=== PATIENT | female | born 1965 | race African-American/Black ===

== ENCOUNTER 2016-10-16 16:56 | Emergency (ER) | payer MEDICARE ==
[2016-10-16] MEDS ORDERED: Ketorolac Tromethamine 30 MG/ML VIAL ONE (18:32)
== END 2016-10-16 18:46 | disposition home or self-care (01) ==
LOC: MADERS 16:56
DX: M19.011 Primary osteoarthritis, right shoulder (principal); T78.40XA Allergy, unspecified, initial encounter; E78.5 Hyperlipidemia, unspecified; E78.00 Pure hypercholesterolemia, unspecified; I10 Essential (primary) hypertension; F17.210 Nicotine dependence, cigarettes, uncomplicated; Z79.899 Other long term (current) drug therapy
CPT/HCPCS: 96372; J1885

== ENCOUNTER 2016-11-18 18:52 | Emergency (ER) | payer MEDICARE ==
[2016-11-18] MEDS ORDERED: Dexamethasone 10 MG/ML VIAL ONE (19:25)
[2016-11-18] MEDS ORDERED: methylPREDNISolone Acetate 40 mg/ml Vial ONE (19:25)
== END 2016-11-18 19:46 | disposition home or self-care (01) ==
LOC: MADERS 18:52
DX: M17.12 Unilateral primary osteoarthritis, left knee (principal); M19.011 Primary osteoarthritis, right shoulder; G89.29 Other chronic pain; E78.5 Hyperlipidemia, unspecified; E78.00 Pure hypercholesterolemia, unspecified; I10 Essential (primary) hypertension; F17.210 Nicotine dependence, cigarettes, uncomplicated
CPT/HCPCS: 96372; J1030; J1040; J1100

== ENCOUNTER 2016-12-18 11:17 | Emergency (ER) | payer MEDICARE | END 2016-12-18 11:44 | disposition home or self-care (01) | LOC: MADERS 11:17 | DX: M17.0 Bilateral primary osteoarthritis of knee (principal); E78.5 Hyperlipidemia, unspecified; E78.00 Pure hypercholesterolemia, unspecified; I10 Essential (primary) hypertension; F17.210 Nicotine dependence, cigarettes, uncomplicated | CPT/HCPCS: 99283 ==

== ENCOUNTER 2017-02-01 14:20 | Emergency (ER) | payer MEDICARE ==
[~2017-02-01 14:20] MED LIST: Fluorescein Opthalmic Strip ONE
== END 2017-02-01 15:38 | disposition home or self-care (01) ==
LOC: MADERS 14:20
DX: Z57.5 Occupational exposure to toxic agents in other industries (principal); E11.9 Type 2 diabetes mellitus without complications; E78.5 Hyperlipidemia, unspecified; I10 Essential (primary) hypertension; F17.210 Nicotine dependence, cigarettes, uncomplicated; Z79.51 Long term (current) use of inhaled steroids; X58.XXXA Exposure to other specified factors, initial encounter
CPT/HCPCS: 99283

== ENCOUNTER 2017-03-28 10:41 | Emergency (ER) | payer MEDICARE ==
[2017-03-28 11:29] LABS: Bilirubin Negative (Negative); Blood, Urine Trace (Negative); Clarity Hazy (Clear); Glucose, Urine (Dipstick) Negative (Negative); Leukocyte Small (Negative); Nitrite Negative (Negative); Protein, Urine (Dipstick) Negative (Neg-Trace); RBC/HPF 0-3 HPF (0-3); Squamous Epithelial 0-3 HPF (0-3); Urobilinogen 0.2 mg/dL (0.2-1.0); pH, Urine 5.5 (5.0-9.0)
[2017-03-28 11:30] LABS: Bacteria/HPF 1+ HPF (None Seen)
== END 2017-03-28 11:50 | disposition home or self-care (01) ==
LOC: MADERS 10:41
DX: M15.9 Polyosteoarthritis, unspecified (principal); N39.0 Urinary tract infection, site not specified; E78.5 Hyperlipidemia, unspecified; I10 Essential (primary) hypertension; F17.210 Nicotine dependence, cigarettes, uncomplicated
CPT/HCPCS: 81003; 81015; 87086; 99283

== ENCOUNTER 2017-06-07 15:33 | Emergency (ER) | payer MEDICARE ==
[2017-06-07 17:36] LABS: #Basophils 0.1 thou/uL (0.0-0.2); #Eosinphils 0.1 thou/uL (0.0-0.7); #Lymphocytes 1.7 thou/uL (1.20-3.40); #Monocytes 0.5 thou/uL (0.11-0.59); #Neutrophils 2.1 thou/uL (1.40-6.50); %Basophils 1.2 % (0.0-1.0); %Eosinophils 1.2 % (0.0-10.0); %Lymphocytes 39.1 % (21.0-51.0); %Neutrophils 47.5 % (42.0-75.0); Hemoglobin 14.5 g/dL (12.0-16.0); Mean Corpuscular HGB CONC 32.6 g/dL (32.0-36.0); Mean Corpuscular Hemoglobin 31.9 pg (27.0-31.0); Mean Corpuscular Volume 97.9 fl (81.0-99.0); Platelet Count 295 thou/uL (130-400); Red Blood Cell (RBC) Count 4.55 mill/uL (4.20-5.40); White Blood Cell (WBC) Count 4.3 thou/uL (4.8-10.8)
[2017-06-07 17:42] LABS: PTT 27.7 SEC (22.9-36.1)
[2017-06-07] MEDS ORDERED: HYDROcodone/Acetaminophen 10/325 mg Tablet ONE (17:42)
[2017-06-07 17:43] LABS: D-Dimer Test Less than 0.27 *mcg/mL (0.27-0.43)
[2017-06-07 17:47] LABS: Anion Gap 17 mmol/L (10-20); BUN (Urea Nitrogen) 9 mg/dL (9.8-20.1); Calc. Creatinine Clearance 0 mL/min (70-130); Calcium 9.5 mg/dL (7.8-10.44); Carbon Dioxide 23 mmol/L (22-29); Chloride 106 mmol/L (98-107); Estimated GFR-MDRD Greater than 90; Glucose 90 mg/dL (70-105); Potassium 3.9 mmol/L (3.5-5.1); Sodium 142 mmol/L (136-145)
== END 2017-06-07 18:05 | disposition home or self-care (01) ==
LOC: MADERS 15:33
DX: M17.12 Unilateral primary osteoarthritis, left knee (principal); E78.5 Hyperlipidemia, unspecified; I10 Essential (primary) hypertension; F17.210 Nicotine dependence, cigarettes, uncomplicated
CPT/HCPCS: 36415; 80048; 85025; 85379; 85610; 85730; 99283

== ENCOUNTER 2017-08-13 17:56 | Emergency (ER) | payer MEDICARE ==
[~2017-08-13 17:56] MED LIST changes: -Fluorescein Opthalmic Strip ONE; +Sodium Chloride 0.9% 1,000 ML BAG ONE
[2017-08-13] MEDS ORDERED: AMOXicillin 250 MG CAP ONE (18:24)
[2017-08-13] MEDS ORDERED: Dexamethasone 10 MG/ML VIAL ONE (18:24)
[2017-08-13] MEDS ORDERED: methylPREDNISolone Sod Succ/PF 125 MG/2 ML VIAL ONE (18:24)
[2017-08-13] MEDS ORDERED: Magnesium Sulfate 2 GM/NS 0.9% 50 ML BAG ONE (18:24)
[2017-08-13] MEDS ORDERED: Ketorolac Tromethamine 30 MG/ML VIAL ONE (18:29)
[2017-08-13] MEDS ORDERED: Benzonatate 100 MG CAP ONE (18:29)
== END 2017-08-13 20:25 | disposition home or self-care (01) ==
LOC: MADERS 17:56
DX: J45.909 Unspecified asthma, uncomplicated (principal); M25.562 Pain in left knee; E78.5 Hyperlipidemia, unspecified; I10 Essential (primary) hypertension; F17.210 Nicotine dependence, cigarettes, uncomplicated
CPT/HCPCS: 87804; 94640; 96365; 96375; J1100; J1885; J2930; J3475; J7050; J7620

== ENCOUNTER 2017-09-02 15:24 | Emergency (ER) | payer MEDICARE ==
[2017-09-02] MEDS ORDERED: Acetaminophen/Codeine 30-300mg Tablet ONE (17:46)
[2017-09-02] MEDS ORDERED: Azithromycin 250 MG TAB ONE (17:46)
== END 2017-09-02 18:10 | disposition home or self-care (01) ==
LOC: MADERS 15:24
DX: J20.9 Acute bronchitis, unspecified (principal); M25.562 Pain in left knee; E78.5 Hyperlipidemia, unspecified; I10 Essential (primary) hypertension; F17.210 Nicotine dependence, cigarettes, uncomplicated
CPT/HCPCS: 99283

== ENCOUNTER 2017-09-27 21:13 | Emergency (ER) | payer MEDICARE ==
--- NOTE | 2017-09-27 22:12 | RAD ---
FOUR VIEWS LEFT KNEE 09/27/17 HISTORY: Left knee pain. History of chronic knee pain. COMPARISON: 06/11/16. FINDINGS: There is tricompartment osteophytosis, greatest involving the medial joint compartment where there is joint space narrowing. There is no fracture, dislocation, or other osseous abnormality. The lateral view is rotated limiting evaluation for a joint effusion. There has been no other interval change fro m the prior exam. IMPRESSION: Osteoarthritis overall similar to the prior exam. POS: [facility]
[2017-09-27] MEDS ORDERED: Ketorolac Tromethamine 60 MG/2 ML VIAL ONE (22:46)
== END 2017-09-27 23:08 | disposition home or self-care (01) ==
LOC: MADERS 21:13
DX: M17.12 Unilateral primary osteoarthritis, left knee (principal); E11.9 Type 2 diabetes mellitus without complications; E78.5 Hyperlipidemia, unspecified; I10 Essential (primary) hypertension; F17.210 Nicotine dependence, cigarettes, uncomplicated
CPT/HCPCS: 96372; J1885

== ENCOUNTER 2017-10-29 19:33 | Emergency (ER) | payer MEDICARE ==
[2017-10-29] MEDS ORDERED: traMADol HCl 50 MG TAB ONE (20:48)
== END 2017-10-29 21:04 | disposition home or self-care (01) ==
LOC: MADERS 19:33
DX: R60.0 Localized edema (principal); I10 Essential (primary) hypertension; E78.5 Hyperlipidemia, unspecified; F17.210 Nicotine dependence, cigarettes, uncomplicated
CPT/HCPCS: 99283

== ENCOUNTER 2017-11-25 17:49 | Emergency (ER) | payer MEDICARE ==
[2017-11-25 18:13] LABS: Bilirubin Negative (Negative); Blood, Urine Trace (Negative); Clarity Clear (Clear); Glucose, Urine (Dipstick) Negative (Negative); Leukocyte Negative (Negative); Nitrite Negative (Negative); Protein, Urine (Dipstick) Negative (Neg-Trace); Urobilinogen 0.2 mg/dL (0.2-1.0); pH, Urine 5.5 (5.0-9.0)
[2017-11-25 18:18] LABS: Bacteria/HPF Rare-Few HPF (None Seen); RBC/HPF 0-3 HPF (0-3); WBC/HPF 0-3 HPF (0-3)
[2017-11-25] MEDS ORDERED: Cyclobenzaprine 10 MG TAB ONE (18:29)
[2017-11-25] MEDS ORDERED: Acetaminophen 500 MG TAB ONE (18:29)
[2017-11-25] MEDS ORDERED: Ibuprofen 800 MG TAB ONE (18:29)
== END 2017-11-25 18:39 | disposition home or self-care (01) ==
LOC: MADERS 17:49
DX: M54.5 Low back pain (principal); E11.9 Type 2 diabetes mellitus without complications; E78.5 Hyperlipidemia, unspecified; I10 Essential (primary) hypertension; M17.12 Unilateral primary osteoarthritis, left knee; F17.210 Nicotine dependence, cigarettes, uncomplicated
CPT/HCPCS: 81003; 81015; 99283

== ENCOUNTER 2017-12-18 19:46 | Emergency (ER) | payer MEDICARE ==
[2017-12-18] MEDS ORDERED: Ketorolac Tromethamine 60 MG/2 ML VIAL ONE (21:04)
[2017-12-18] MEDS ORDERED: Amoxicillin/Potassium Clav 875 MG TAB ONE (21:04)
== END 2017-12-18 21:24 | disposition home or self-care (01) ==
LOC: MADERS 19:46
DX: M25.562 Pain in left knee (principal); L73.9 Follicular disorder, unspecified; E78.5 Hyperlipidemia, unspecified; I10 Essential (primary) hypertension; M19.90 Unspecified osteoarthritis, unspecified site; F17.210 Nicotine dependence, cigarettes, uncomplicated
CPT/HCPCS: 96372; J1885

== ENCOUNTER 2018-02-25 20:10 | Emergency (ER) | payer MEDICARE ==
[2018-02-25] MEDS ORDERED: Ibuprofen 800 MG TAB ONE (20:34)
[2018-02-25] MEDS ORDERED: predniSONE 20 MG TAB ONE (20:34)
== END 2018-02-25 20:46 | disposition home or self-care (01) ==
LOC: MADERS 20:10
DX: M72.2 Plantar fascial fibromatosis (principal); E11.9 Type 2 diabetes mellitus without complications; E78.5 Hyperlipidemia, unspecified; I10 Essential (primary) hypertension; F17.210 Nicotine dependence, cigarettes, uncomplicated
CPT/HCPCS: 99283; J7506

== ENCOUNTER 2018-11-07 14:14 | Emergency (ER) | payer MEDICARE ==
[2018-11-07] MEDS ORDERED: methylPREDNISolone Sod Succ/PF 125 MG/2 ML VIAL ONE (14:36)
[2018-11-07] MEDS ORDERED: Lidocaine 1% 20 ML MDV ONE (14:36)
[2018-11-07] MEDS ORDERED: Triamcinolone 40 MG/ML VIAL ONE (14:43)
== END 2018-11-07 15:04 | disposition home or self-care (01) ==
LOC: MADERS 14:14
DX: M17.12 Unilateral primary osteoarthritis, left knee (principal); I10 Essential (primary) hypertension; R73.03 Prediabetes; E78.5 Hyperlipidemia, unspecified; F17.210 Nicotine dependence, cigarettes, uncomplicated
CPT/HCPCS: 96372; J2001; J2930; J3301

== ENCOUNTER 2018-11-14 19:33 | Emergency (ER) | payer MEDICARE ==
[2018-11-14] MEDS ORDERED: Dexamethasone 10 MG/ML VIAL ONE (20:12)
--- NOTE | 2018-11-14 21:00 | RAD ---
FEXAM: Two views chest PROVIDED CLINICAL HISTORY: Wheezing COMPARISON: 04/07/2016 FINDINGS: Cardiac and mediastinal silhouette appears within normal limits. Lungs appear free of significant opa city. No pleural fluid or pneumothorax apparent. Prominence of the pulmonary vasculature and pulmonar y interstitium. IMPRESSION: Prominence of the pulmonary vasculature. Correlate with concerns for congestive failure.
[2018-11-14 22:14] LABS: Band 1 % (5-11); Eosinophils 1 % (0-10); Hemoglobin 12.8 g/dL (12.0-16.0); Lymphocytes 22 % (21-51); MDiff Complete? YES; Mean Corpuscular Volume 93.9 fL (78.0-98.0); Mean Platelet Volume 6.5 fL (7.4-10.4); Monocytes 1 % (0-10); Neutrophil 74 % (42-75); Platelet Count 285 thou/uL (130-400); Platelet Morphology Comment Appears Adequate; RBC Morphology Normal; Reactive Lymphocytes 1 % (0-10); Red Blood Cell (RBC) Count 4.13 mill/uL (4.20-5.40); White Blood Cell (WBC) Count 6.1 thou/uL (4.8-10.8)
[2018-11-14 22:20] LABS: ALT (SGPT) 16 U/L (8-55); AST (SGOT) 14 U/L (5-34); Albumin 4.1 g/dL (3.5-5.0); Alkaline Phosphatase 66 U/L (40-150); Anion Gap 14 mmol/L (10-20); BUN (Urea Nitrogen) 12 mg/dL (9.8-20.1); Bilirubin, Total 0.6 mg/dL (0.2-1.2); Calc. Creatinine Clearance 0 mL/min (70-130); Carbon Dioxide 24 mmol/L (22-29); Chloride 107 mmol/L (98-107); Estimated GFR-MDRD Greater than 90; Globulin 3.1 g/dL (2.4-3.5); Glucose 101 mg/dL (70-105); Potassium 3.4 mmol/L (3.5-5.1); Protein, Total 7.2 g/dL (6.0-8.3); Sodium 142 mmol/L (136-145)
[2018-11-14] MEDS ORDERED: Ventolin HFA Inhaler 60 PUFF INHALER ONE (22:39)
[2018-11-14] MEDS ORDERED: Benzonatate 100 MG CAP ONE (22:39)
[2018-11-14] MEDS ORDERED: Amoxicillin/Potassium Clav 875 MG TAB ONE (22:39)
== END 2018-11-14 22:50 | disposition home or self-care (01) ==
LOC: MADERS 19:33
DX: J18.9 Pneumonia, unspecified organism (principal); J45.909 Unspecified asthma, uncomplicated; I10 Essential (primary) hypertension; E78.5 Hyperlipidemia, unspecified; F17.210 Nicotine dependence, cigarettes, uncomplicated; Z79.899 Other long term (current) drug therapy
CPT/HCPCS: 36415; 71046; 80053; 83880; 84484; 85025; 93005; 96372; J1100; J7620

== ENCOUNTER 2018-11-24 18:58 | Emergency (ER) | payer MEDICARE ==
[2018-11-24] MEDS ORDERED: predniSONE 20 MG TAB ONE ×2 (19:29)
--- NOTE | 2018-11-24 19:41 | RAD ---
Chest one view HISTORY: Dyspnea. COMPARISON: 09/26/2011. FINDINGS: Cardiac silhouette is magnified by projection. Pulmonary vasculature is upper limits of nor mal. Mediastinum is midline. No lobar consolidation or evidence of pneumothorax. Postoperative changes left shoulder. IMPRESSION: No active cardiopulmonary abnormalities are demonstrated.
[2018-11-24] MEDS ORDERED: Ventolin HFA Inhaler 60 PUFF INHALER ONE (21:00)
== END 2018-11-24 21:15 | disposition home or self-care (01) ==
LOC: MADERS 18:58
DX: J45.909 Unspecified asthma, uncomplicated (principal); E78.5 Hyperlipidemia, unspecified; I10 Essential (primary) hypertension; R73.03 Prediabetes; M19.90 Unspecified osteoarthritis, unspecified site; F17.210 Nicotine dependence, cigarettes, uncomplicated
CPT/HCPCS: 71045; 94640; J7512; J7620

== ENCOUNTER 2019-02-07 10:44 | Emergency (ER) | payer MEDICARE | END 2019-02-07 12:25 | disposition home or self-care (01) | LOC: MADERS 10:44 | DX: T63.461A Toxic effect of venom of wasps, accidental (unintentional), initial encounter (principal); I10 Essential (primary) hypertension; F17.210 Nicotine dependence, cigarettes, uncomplicated | CPT/HCPCS: 99283 ==

== ENCOUNTER 2019-02-28 10:13 | Outpatient (CLI) | payer MEDICARE ==
--- NOTE | 2019-02-28 10:32 | RAD ---
Left knee 3 views: HISTORY: Chronic left knee pain FINDINGS: There are marked degenerative changes manifested by osteophyte formation and joint space na rrowing. No acute fracture, dislocation or bony destruction is seen. IMPRESSION: Left knee osteoarthritis.
--- NOTE | 2019-02-28 11:02 | RAD ---
LEFT ANKLE 2 VIEWS: HISTORY: Chronic pain without trauma. FINDINGS: AP and lateral views of the ankle demonstrate some minimal diffuse subcutaneous swelling of the lower leg and ankle. Mild degenerative changes. No fracture or dislocation. IMPRESSION: Degenerative changes with minimal subcutaneous swelling and fat stranding. No, dislocation, or other significant osseous abnormality. POS: C
--- NOTE | 2019-02-28 11:03 | RAD ---
RIGHT ANKLE 2 VIEWS: HISTORY: Chronic pain without trauma. FINDINGS: Mild soft tissue swelling. Minimal degenerative change. No fracture, dislocation, or other acute os seous abnormality. IMPRESSION: Degenerative changes without fracture or dislocation. POS: [facility]
--- NOTE | 2019-02-28 11:04 | RAD ---
LUMBAR SPINE 3 VIEWS: HISTORY: Chronic pain without trauma. FINDINGS: Generalized disk-osteophytosis and facet arthrosis. No significant malalignment. No acute fracture. No focal bone lesion. IMPRESSION: Lumbar spondylosis. No other acute process. POS: C
== END 2019-02-28 10:14 | disposition home or self-care (01) ==
LOC: MADRAD 10:13
PROVIDERS: ATTEND Family Medicine
DX: M25.471 Effusion, right ankle (principal); M25.472 Effusion, left ankle; M25.562 Pain in left knee; M54.5 Low back pain; I10 Essential (primary) hypertension; M47.816 Spondylosis without myelopathy or radiculopathy, lumbar region; M19.071 Primary osteoarthritis, right ankle and foot; M19.072 Primary osteoarthritis, left ankle and foot; M17.12 Unilateral primary osteoarthritis, left knee
CPT/HCPCS: 72100

== ENCOUNTER 2020-04-23 20:19 | Emergency (ER) | payer MEDICARE ==
[2020-04-23] MEDS ORDERED: Sulfameth/Trimethoprim DS 800-160mg TAB ONE (20:46)
== END 2020-04-23 20:50 | disposition home or self-care (01) ==
LOC: MADERS 20:19
DX: L02.416 Cutaneous abscess of left lower limb (principal); E78.5 Hyperlipidemia, unspecified; E78.00 Pure hypercholesterolemia, unspecified; I10 Essential (primary) hypertension; F17.210 Nicotine dependence, cigarettes, uncomplicated; Z79.899 Other long term (current) drug therapy
CPT/HCPCS: 10061

== ENCOUNTER 2020-09-11 16:42 | Emergency (ER) | payer MEDICARE ==
[2020-09-11] MEDS ORDERED: Acetaminophen 500 MG TAB ONE (16:55)
--- NOTE | 2020-09-11 17:13 | RAD ---
EXAM: 4 views of the left knee HISTORY: Knee pain after injury COMPARISON: 09/27/2017 FINDINGS: No knee effusion is seen. There is no evidence of acute fracture or dislocation. Moderate t ricompartmental degenerative changes are seen. No soft tissue swelling is present. IMPRESSION: Moderate left knee osteoarthritis without evidence of acute osseous abnormality.
--- NOTE | 2020-09-11 18:27 | CT ---
EXAM: BRAIN CT WITHOUT IV CONTRAST: 09/11/20 HISTORY: Headache. FINDINGS: No focal mass or midline shift. No intra or extra-axial hemorrhage. Sinuses and mastoids show no acut e process. IMPRESSION: No acute intracranial process. No mass or bleed. POS: [facility]
== END 2020-09-11 18:40 | disposition home or self-care (01) ==
LOC: MADERS 16:42
DX: S80.02XA Contusion of left knee, initial encounter (principal); R51.9 Headache, unspecified; R73.09 Other abnormal glucose; E78.00 Pure hypercholesterolemia, unspecified; E78.5 Hyperlipidemia, unspecified; I10 Essential (primary) hypertension; F17.210 Nicotine dependence, cigarettes, uncomplicated; Z79.899 Other long term (current) drug therapy; V43.52XA Car driver injured in collision with other type car in traffic accident, initial encounter
CPT/HCPCS: 70450

== ENCOUNTER 2020-09-17 23:14 | Emergency (ER) | payer MEDICARE ==
[2020-09-18 00:14] LABS: #Basophils 0.1 thou/uL (0.0-0.2); #Eosinphils 0.1 thou/uL (0.0-0.7); #Lymphocytes 2.1 thou/uL (1.20-3.40); #Monocytes 0.5 thou/uL (0.11-0.59); #Neutrophils 2.1 thou/uL (1.40-6.50); %Basophils 1.2 % (0.0-1.0); %Eosinophils 1.1 % (0.0-10.0); %Lymphocytes 43.6 % (21.0-51.0); %Monocytes 9.6 % (0.0-10.0); %Neutrophils 44.6 % (42.0-75.0); Hemoglobin 13.5 g/dL (12.0-16.0); Mean Corpuscular HGB CONC 33.4 g/dL (32.0-36.0); Mean Corpuscular Hemoglobin 31.8 pg (27.0-31.0); Mean Corpuscular Volume 95.1 fL (78.0-98.0); Mean Platelet Volume 6.3 fL (7.4-10.4); Platelet Count 301 thou/uL (130-400); RBC Distribution Width 10.6 % (11.5-14.5); Red Blood Cell (RBC) Count 4.26 mill/uL (4.20-5.40); White Blood Cell (WBC) Count 4.7 thou/uL (4.8-10.8)
[2020-09-18 00:34] LABS: ALT (SGPT) 29 U/L (8-55); AST (SGOT) 23 U/L (5-34); Albumin 4.1 g/dL (3.5-5.0); Alkaline Phosphatase 54 U/L (40-110); Anion Gap 12 mmol/L (10-20); BUN (Urea Nitrogen) 11 mg/dL (9.8-20.1); Bilirubin, Total 0.5 mg/dL (0.2-1.2); Calc. Creatinine Clearance 0 mL/min (70-130); Calcium 8.8 mg/dL (7.8-10.44); Carbon Dioxide 29 mmol/L (22-29); Chloride 105 mmol/L (98-107); Globulin 2.9 g/dL (2.4-3.5); Glucose 103 mg/dL (70-105); Lipase 26 U/L (8-78); Potassium 3.5 mmol/L (3.5-5.1); Sodium 142 mmol/L (136-145)
== END 2020-09-18 00:50 | disposition home or self-care (01) ==
LOC: MADERS 23:14
DX: R10.11 Right upper quadrant pain (principal); E78.5 Hyperlipidemia, unspecified; E78.00 Pure hypercholesterolemia, unspecified; I10 Essential (primary) hypertension; F17.210 Nicotine dependence, cigarettes, uncomplicated
CPT/HCPCS: 80053; 83605; 83690; 84484; 85025; 93005

== ENCOUNTER 2021-03-01 06:39 | Emergency (ER) | payer MEDICARE ==
[2021-03-01] MEDS ORDERED: predniSONE 20 MG TAB ONE (06:59)
== END 2021-03-01 08:40 | disposition home or self-care (01) ==
LOC: MADERS 06:39
DX: J45.901 Unspecified asthma with (acute) exacerbation (principal); F17.210 Nicotine dependence, cigarettes, uncomplicated; R73.03 Prediabetes; E78.5 Hyperlipidemia, unspecified; E78.00 Pure hypercholesterolemia, unspecified; I10 Essential (primary) hypertension; M19.90 Unspecified osteoarthritis, unspecified site
CPT/HCPCS: J7512; J7620

== ENCOUNTER 2023-07-21 15:05 | Emergency (ER) | payer MEDICARE | END 2023-07-21 16:38 | disposition home or self-care (01) | LOC: MADERS 15:05 | DX: J02.9 Acute pharyngitis, unspecified (principal); E11.9 Type 2 diabetes mellitus without complications; E78.00 Pure hypercholesterolemia, unspecified; I10 Essential (primary) hypertension; F17.210 Nicotine dependence, cigarettes, uncomplicated; Z79.899 Other long term (current) drug therapy; Z79.82 Long term (current) use of aspirin | CPT/HCPCS: 87081; 87430; 99283 ==

== ENCOUNTER 2023-07-23 18:06 | Emergency (ER) | payer MEDICARE ==
[2023-07-23] MEDS ORDERED: Ketorolac Tromethamine 10 MG TAB ONE (18:33)
== END 2023-07-23 18:41 | disposition home or self-care (01) ==
LOC: MADERS 18:06
DX: J02.9 Acute pharyngitis, unspecified (principal); R09.81 Nasal congestion; E11.9 Type 2 diabetes mellitus without complications; E78.00 Pure hypercholesterolemia, unspecified; I10 Essential (primary) hypertension; Z87.891 Personal history of nicotine dependence; Z79.82 Long term (current) use of aspirin; Z79.899 Other long term (current) drug therapy
CPT/HCPCS: 99283

== ENCOUNTER 2023-12-17 21:19 | Emergency (ER) | payer OTHER, MEDICARE ==
[~2023-12-17 21:19] MED LIST changes: +Iopamidol 370 76% 100 ML VIAL ONE; -Sodium Chloride 0.9% 1,000 ML BAG ONE
[2023-12-17 21:42] LABS: Hematocrit 37.1 % (36.0-47.0); Hemoglobin 11.8 g/dL (12.0-16.0); Mean Corpuscular HGB CONC 31.9 g/dL (32.0-36.0); Mean Corpuscular Hemoglobin 29.9 pg (27.0-31.0); Mean Corpuscular Volume 93.9 fl (78.0-98.0); Mean Platelet Volume 6.1 fL (7.4-10.4); Platelet Count 317 10x3/uL (130-400); RBC Distribution Width 11.5 % (11.5-14.5); Red Blood Cell (RBC) Count 3.96 mill/uL (4.20-5.40); White Blood Cell (WBC) Count 4.8 10x3/uL (4.8-10.8)
[2023-12-17] MEDS ORDERED: Ketorolac Tromethamine 30 MG (1 mL) VIAL ONE (21:45)
[2023-12-17 21:52] LABS: Prothrombin Time 13.2 sec (12.0-14.7)
[2023-12-17 21:53] LABS: Lymphocytes 53 % (21-51); MDiff Complete? YES; Monocytes 7 % (0-10); Neutrophil 40 % (42-75); PTT 25.3 sec (22.9-36.1)
[2023-12-17 22:00] LABS: Anion Gap 17 mmol/L (10-20); BUN (Urea Nitrogen) 17 mg/dL (9.8-20.1); Calc. Creatinine Clearance 0 mL/min (70-130); Calcium 8.9 mg/dL (7.8-10.44); Carbon Dioxide 24 mmol/L (22-29); Chloride 104 mmol/L (98-107); Estimated GFR 78; Glucose 106 mg/dL (70-105); Potassium 3.5 mmol/L (3.5-5.1); Sodium 141 mmol/L (136-145)
[2023-12-17 22:03] LABS: Troponin I 0.012 ng/mL (< 0.028)
== END 2023-12-17 22:40 | disposition home or self-care (01) ==
LOC: MADERS 21:19
DX: S33.5XXA Sprain of ligaments of lumbar spine, initial encounter (principal); E11.9 Type 2 diabetes mellitus without complications; E78.00 Pure hypercholesterolemia, unspecified; I10 Essential (primary) hypertension; Z87.891 Personal history of nicotine dependence; V43.52XA Car driver injured in collision with other type car in traffic accident, initial encounter
CPT/HCPCS: 70450; 71260; 72125; 74177; 80048; 84484; 85025; 85610; 85730; 93005; 96374; J1885; Q9967

== ENCOUNTER 2024-02-01 11:46 | Emergency (ER) | payer MEDICARE, OTHER ==
[2024-02-01] MEDS ORDERED: Ketorolac Tromethamine 30 MG (1 mL) VIAL ONE (12:12)
== END 2024-02-01 13:00 | disposition home or self-care (01) ==
LOC: MADERS 11:46
DX: M25.551 Pain in right hip (principal); I10 Essential (primary) hypertension; Z87.891 Personal history of nicotine dependence
CPT/HCPCS: 96372; J1885

== ENCOUNTER 2024-03-11 15:29 | Emergency (ER) | payer MEDICARE, OTHER | END 2024-03-11 16:01 | disposition home or self-care (01) | LOC: MADERS 15:29 | DX: L43.9 Lichen planus, unspecified (principal); I10 Essential (primary) hypertension; Z87.891 Personal history of nicotine dependence | CPT/HCPCS: 99283 ==

== ENCOUNTER 2024-07-09 10:14 | Emergency (ER) | payer MEDICARE | END 2024-07-09 11:32 | disposition home or self-care (01) | LOC: MADERS 10:14 | DX: J02.9 Acute pharyngitis, unspecified (principal); I10 Essential (primary) hypertension; Z87.891 Personal history of nicotine dependence | CPT/HCPCS: 87081; 87428; 87430; 99283 ==

== ENCOUNTER 2024-09-13 18:41 | Emergency (ER) | payer MEDICARE ==
[2024-09-13] MEDS ORDERED: Ipratropium/Albuterol 3 ML NEB ONE ×2 (19:11→20:30)
[2024-09-13] MEDS ORDERED: Albuterol 2.5 MG (0.5 mL) NEB ONE (20:30)
== END 2024-09-13 21:07 | disposition home or self-care (01) ==
LOC: MADERS 18:41
DX: J44.1 Chronic obstructive pulmonary disease with (acute) exacerbation (principal); I10 Essential (primary) hypertension; E78.00 Pure hypercholesterolemia, unspecified; N32.89 Other specified disorders of bladder; Z87.891 Personal history of nicotine dependence; Z79.899 Other long term (current) drug therapy
CPT/HCPCS: 71046; J7611; J7620